=== PATIENT | female | born 2000 | race Two or more races ===

== ENCOUNTER 2023-05-30 17:07 | Emergency (ER) | payer OTHER ==
[~2023-05-30] VITALS: Ht 152.4 cm; Wt 65.8 kg
[2023-05-30] MEDS ORDERED: PRENA1 TRUE CO1 EACH (17:14)
[2023-05-30 18:00] LABS: HEMATOCRIT 36.8 % (36.0-45.00); HEMOGLOBIN 12.7 g/dL (12.0-15.00); MEAN CELL VOLUME 84.5 fL (80.00-100.00); MEAN CORPUSCULAR HEMOGLOBIN 29.2 pg (27.00-32.0); MEAN CORPUSCULAR HGB CONC 34.5 g/dl (32.0-36.0); PLATELET COUNT 180 K/uL (150-450); RED BLOOD COUNT 4.35 M/uL (4.00-6.00); RED CELL DISTRIBUTION WIDTH 12.7 % (11.5-14.5)
[2023-05-30 18:19] LABS: PH,URINE 5.5 (5.0-8.0); URINE APPEARANCE Clear; URINE BILIRRUBIN Negative (NEGATIVE); URINE BLOOD Negative; URINE COLOR Yellow; URINE GLUCOSE Negative (NEGATIVE); URINE LEUKOCYTE Negative; URINE NITRATE Negative; URINE PROTEIN Negative (NEGATIVE)
[2023-05-30 18:22] LABS: URINE EPITHELIAL CELLS 18.2 uL (0.0-38.8); URINE RBC 12.3 uL (0.0-20.8)
[2023-05-30 18:32] LABS: URINE SPERM FEW
[2023-05-30 18:49] LABS: CREATININE SERUM 0.87 mg/dL (0.55-1.02); GFR 79.99; POTASSIUM 3.64 mEq/L (3.5-5.1)
== END 2023-05-30 23:27 | disposition home or self-care (01) ==
LOC: ER 17:08
PROVIDERS: General Practice
DX: O26.891 Other specified pregnancy related conditions, first trimester (principal); Z3A.13 13 weeks gestation of pregnancy; R10.2 Pelvic and perineal pain